=== PATIENT | male | born 1970 | race Hispanic/Latino ===

== ENCOUNTER 2018-08-22 13:57 | Emergency (ER) | payer SELFPAY ==
[2018-08-22 14:19] VITALS: BP 165/95
--- NOTE | 2018-08-22 14:19 | Emergency Department Report ---
Chief Complaint: Chest Pain Stated Complaint: CHEST PAIN Time Seen by Provider: 08/22/18 14:14 - HPI History of Present Illness: This is a 47 y.o. male that presents with chest pain to right side. Patient states he lost his 1 month ago and feeling chest tightness every since. - Exam Vital Signs: Vital Signs 08/22/18 14:15 Temperature 98.1 F Pulse Rate 118 H Respiratory 18 Rate Blood Pressure 165/95 O2 Sat by Pulse 98 Oximetry MSE screening note: Focused history and physical exam performed. Due to findings the following was ordered: ekg, labs, and cxr. ED Medical Decision Making - Medical Decision Making Patient urged not to elope from the ED as their condition may be serious if not clinically assessed and managed. I was notified by nurse patient eloped after EKG. ED Disposition for MSE Condition: Stable
== END 2018-08-23 01:30 | disposition left against medical advice (07) ==
LOC: ED 13:57
DX: R07.89 Other chest pain (principal); Z53.21 Procedure and treatment not carried out due to patient leaving prior to being seen by health care provider
CPT/HCPCS: 93005; 93010